=== PATIENT | female | born 1970 | race Caucasian/White ===

== ENCOUNTER 2019-10-03 09:55 | Emergency (ER) | payer OTHER ==
[2019-10-03 10:02] VITALS: BMI 24.1
--- NOTE | 2019-10-03 10:59 | EKG ---
Test Reason : Blood Pressure : / mmHG Vent. Rate : 074 BPM Atrial Rate : 074 BPM P-R Int : 156 ms QRS Dur : 078 ms QT Int : 396 ms P-R-T Axes : 079 077 060 degrees QTc Int : 439 ms NORMAL SINUS RHYTHM POSSIBLE LEFT ATRIAL ENLARGEMENT T WAVE ABNORMALITY, CONSIDER ANTERIOR ISCHEMIA ABNORMAL ECG NO PREVIOUS ECGS AVAILABLE Confirmed by TYLER CHURCHILL MD ([id number]) on 10/03/2019 10:59:33 AM Referred By: Confirmed By:TLYER CHURCHILL MD
[2019-10-03 11:29] LABS: BASO % 0.5 % (0-2.0); EOS % 0.6 % (0-4.5); HEMATOCRIT 42.7 % (32.4-45.2); HEMOGLOBIN 14.7 GM/dL (10.7-15.3); LYMPH % 28.5 % (8-40); MCH 31.6 pg (25.7-33.7); MCHC 34.3 g/dl (32.0-36.0); MEAN PLT VOLUME 7.6 fl (7.5-11.1); MONO % 8.7 % (3.8-10.2); NEUT % 61.7 % (42.8-82.8); PLATELET COUNT 302 K/MM3 (134-434); RBC 4.64 M/mm3 (3.60-5.2); RDW 13.7 % (11.6-15.6); WHITE BLOOD COUNT 6.1 K/mm3 (4.0-10.0)
[2019-10-03 12:06] LABS: ALBUMIN 4.1 g/dl (3.4-5.0); BILIRUBIN,TOTAL 0.4 mg/dL (0.2-1); BLOOD UREA NITROGEN 24.4 mg/dL (7-18); CALCIUM 8.4 mg/dL (8.5-10.1); CREATININE 0.9 mg/dL (0.55-1.3); POTASSIUM 4.2 mmol/L (3.5-5.1); TOT PROT 6.8 g/dl (6.4-8.2)
[2019-10-03] MEDS ORDERED: ALPRAZolam 1 MG TABLET PO PRN (12:20)
[2019-10-03] MEDS ORDERED: ALPRAZolam 1 MG TABLET ONE (12:23)
--- NOTE | 2019-10-03 13:23 | PDOC ---
Documentation entered by Suraj Higgins SCRIBE, acting as scribe for Kvng Frazier MD. Kvng Frazier MD: This documentation has been prepared by the Gisela rocha Xhesika, SCRIBE, under my direction and personally reviewed by me in its entirety. I confirm that the documentation accurately reflects all work, treatment, procedures, and medical decision making performed by me. Attending Attestation - Resident Resident Name: Kenya Nicole - ED Attending Attestation I have performed the following: I have examined & evaluated the patient, The case was reviewed & discussed with the resident, I agree w/resident's findings & plan - HPI HPI: 10/03/19 11:29 The patient is a 49 year old female with a significant PMH of depression, anxiety, and bipolar disorder who presents to the emergency department for intermittent L sided chest pain x 1.5 weeks. Pt states she is having lexapro withdrawal. Patient reports she had her medication adjusted on 09/21/19 ( initially taking trazodone and it was replaced with ambien and lexapro), felt better for a couple of days, however, since she felt overly excited on lexapro ( sleeping less, anxious, jittery) so she stopped taking her lexapro 3d ago after self-wean but presents with persistent anxious feeling, including palpitations this morning. She initially came because she thought she was coming here for detox from lexapro. Pt wants close psychiatric follow up. Pt denies any hallucinations, SI, or HI. The patient denies shortness of breath, headache and dizziness. Denies fever, chills, cough, nausea, vomiting, diarrhea and constipation. Denies dysuria, frequency, urgency and hematuria. Allergies: NKDA PCP: located at [facility] in [place] - Physicial Exam PE: 10/03/19 13:19 Vital signs stable Patient is well-appearing lying in stretcher,, now without chest pain or palpitations Appropriate, not tearful, making good eye contact Heart is regular without ectopic beats, lungs are clear Abdomen benign No edema Neurologically intact No hallucinations or ideations - Medical Decision Making 10/03/19 13:20 49-year-old female with recent changes to her psychiatric medications, not tolerating Lexapro and having some extrapyramidal and excitatory symptoms, now self-weaned after only 10d, presents here for palpitations/atypical chest discomfort most consistent with anxiety/panic attack versus persistent lexapro side effects. not consistent with ACS, pt well appearing without acute cardiopulmonary findings or acute psych conditions. labs, ekg, cxr trial of xanax - used to take 1mg daily, will trial in light of these sxs reassess- has f/u with her psychiatrist but looking to change, will offer options Heart Score/ECG Review - History History: Slightly suspicious - Electrocardiogram EKG: Normal - Age Age: 45-65 - Risk Factors Based on the list above the patient has:: No risk factors known - Troponin Troponin: </= normal limit - Score Heart Score - Total: 1 #1 ECG reviewed & interpreted by me at: 10:10 General ECG Interpretation: Sinus Rhythm, Normal Rate (74), Normal Intervals ( qtc 439), No acute ischemic changes (isolated TWI V3)
--- NOTE | 2019-10-03 13:58 | PDOC ---
History of Present Illness - General Chief Complaint: Chest Pain Stated Complaint: CHEST PAIN Time Seen by Provider: 10/03/19 10:15 - History of Present Illness Initial Comments: 10/03/19 13:49 49 yo F PMH bipolar dx, anxiety/depression, presenting due to L sided chest wall pain. Patient states that she is on Geodon, Trileptal, and Lamictal, as well as Ambien to sleep. States that her psychiatrist added Lexapro 10mg on when she last saw him (Dr. Snowden at [facility] in [place]) because she had been feeling tired all the time. While she initially improved, she began to feel "wired" and feeling like she was running non-stop. She then self-weaned down to 5mg and ultimately stopped taking it, but the wired feeling has only gotten worse. Over the past week and a half, she has also had intermittent 8/10 sharp L sided chest pain, not associated with exertion or position. Denies N/V, SOB, and diaphoresis. States that she has only been able to sleep for around 4 broken up hours per night, feeling very irritable. Thought this was the detox center and wanted to detox from Lexapro. Past History - Past Medical History Allergies/Adverse Reactions: Allergies Allergy/AdvReac Type Severity Reaction Status Date / Time No Known Allergies Allergy Verified 10/03/19 10:02 Home Medications: Ambulatory Orders Escitalopram Oxalate [Lexapro -] 10 mg PO DAILY 10/03/19 Lamotrigine [Lamictal] 200 mg PO BID 10/03/19 Ziprasidone HCl 60 mg PO BID 10/03/19 Zolpidem Tartrate [Ambien] 10 mg PO HS 10/03/19 COPD: No - Psycho Social/Smoking Cessation Hx Smoking History: Never smoked Hx Alcohol Use: No Drug/Substance Use Hx: No Review of Systems - Review of Systems Comments:: 10/03/19 13:58 GENERAL/CONSTITUTIONAL: No fever or chills. No weakness. Generalized tingling throughout body. HEAD, EYES, EARS, NOSE AND THROAT: No change in vision. No ear pain or discharge. No sore throat. CARDIOVASCULAR: L sided chest pain, no shortness of breath. RESPIRATORY: No cough, wheezing, or hemoptysis. GASTROINTESTINAL: No nausea, vomiting, diarrhea or constipation. GENITOURINARY: No dysuria, frequency, or change in urination. MUSCULOSKELETAL: No joint or muscle swelling or pain. No neck or back pain. SKIN: No rash NEUROLOGIC: No headache, vertigo, loss of consciousness, or change in strength/ sensation. ENDOCRINE: No increased thirst. No abnormal weight change. HEMATOLOGIC/LYMPHATIC: No anemia, easy bleeding, or history of blood clots. ALLERGIC/IMMUNOLOGIC: No hives or skin allergy *Physical Exam - Vital Signs Last Vital Signs Temp Pulse Resp BP Pulse Ox 97.8 F 84 16 108/67 97 10/03/19 10:00 10/03/19 10:00 10/03/19 10:00 10/03/19 10:00 10/03/19 11:15 - Physical Exam 10/03/19 14:06 Gen: well-developed, well-nourished, NAD Neuro: AAOX4, CN II-XII intact, FTN intact, EOMI, PERRLA, 5/5 strength, SILT HEENT: atraumatic, normocephalic, dry mucous membranes Neck: trachea midline, supple CV: regular rate, regular rhythm, no murmurs, rubs, or gallops Pulm: CTA b/l, no wheezing Abd: soft, non-distended, non-tender MSK: full ROM, intact pulses. L sided chest wall tenderness. Extr: no edema, no deformities Skin: warm, dry ED Treatment Course - LABORATORY CBC & Chemistry Diagram: 10/03/19 11:20 10/03/19 11:20 - ADDITIONAL ORDERS Additional order review: Laboratory Results 10/03/19 10/03/19 11:20 11:20 Sodium 140 Potassium 4.2 Chloride 105 Carbon Dioxide 27 Anion Gap 7 L BUN 24.4 H Creatinine 0.9 Est GFR (CKD-EPI)AfAm 87.63 Est GFR (CKD-EPI)NonAf 75.61 Random Glucose 95 Calcium 8.4 L Total Bilirubin 0.4 AST 15 ALT 31 Alkaline Phosphatase 50 Creatine Kinase 40 Troponin I < 0.02 Total Protein 6.8 Albumin 4.1 10/03/19 11:20 RBC 4.64 MCV 92.0 MCHC 34.3 RDW 13.7 MPV 7.6 Neutrophils % 61.7 Lymphocytes % 28.5 Monocytes % 8.7 Eosinophils % 0.6 Basophils % 0.5 - RADIOLOGY Radiology Studies Ordered: Category Date Time Status CHEST X-RAY PORTABLE* [RAD] Stat Radiology 10/03/19 10:57 Completed Medical Decision Making - Medical Decision Making 10/03/19 14:07 49 yo F PMH bipolar, anxiety/depression, here with L sided chest pain. - EKG normal sinus at 74 bpm with T wave inversions in V2 and V3, otherwise unremarkable. - CXR without acute pathology - CBC, CMP wnl - trop negative - TSH wnl - will dc with outpatient psychiatric follow up Discharge - Discharge Information Problems reviewed: Yes Clinical Impression/Diagnosis: Chest pain Condition: Improved Disposition: HOME - Admission No - Follow up/Referral Referrals: Tod Marshall MD [Staff Physician] - Kayleigh Hannah [Non Staff, Medical] - Odilon Garsia MD [Non Staff, Medical] - Aquilino Castro MD [Staff Physician] - Emily Botello MD [Staff Physician] - Gilbert White MD [Non Staff, Medical] - Henrietta Fuller [Staff Physician] - - Patient Discharge Instructions Patient Printed Discharge Instructions: DI for Atypical Chest Pain Additional Instructions: You were seen with L sided chest pain in the setting of recent change in your psychiatric medications. Your EKG and labs were unconcerning for acute issues. Please follow up with your outpatient psychiatrist. We have also included referrals to other potential psychiatrists. Follow up with your primary care doctor within 1 week. Return to the ED if you develop worsening symptoms. - Post Discharge Activity
[2019-10-03 15:02] VITALS: BP 98/58; PULSE 71; TEMP 98
== END 2019-10-03 15:00 | disposition home or self-care (01) ==
LOC: JER 09:55
DX: R07.9 Chest pain, unspecified (principal); F41.9 Anxiety disorder, unspecified; F31.9 Bipolar disorder, unspecified
CPT/HCPCS: 36415; 71045-TC-FY; 80053; 82550; 84443; 84484; 85025; 93005; 93010; 99283-25